=== PATIENT | male | born 1945 | race African-American/Black ===

== ENCOUNTER 2018-11-05 09:08 | Day surgery (SDC) | payer MEDICARE, BC, OTHER ==
[~2018-11-05 09:08] MED LIST: BUPIVACAINE HCL 0.75% INJ/PF (7.5 MG/1 ML) 10 ML SDV OS PRN; CHONDR SU A NA/HYALUR INTRAOC KIT (SURGICARE) ONE; DORZOLAMIDE HCL 2%/TIMOLOL MALEAT 0.5% OPH SOLN 10 ML OS PRN; EPINEPHRINE INJ/PF 1 MG/1 ML AMPULE ONE; KETOROLAC TROMETHAMINE 0.45% 4 DROP/0.4 ML DROPERETTE OS PRN; LIDOCAINE 1% INJ-PF (10 MG/ML) 30 ML SDV ONE; LIDOCAINE 4% INJ/PF (40 MG/ML) 5 ML AMPUL OS PRN; MIDAZOLAM 2 MG/2 ML INJ ONE
[2018-11-05] MEDS: CYCLOPENTOLATE 0.2%/PHENYLEPHRINE 1% OPH SOLN 2 ML OS PRN ×3 (10:16→10:37)
[2018-11-05] MEDS: TROPICAMIDE 1% OPH SOLN 3 ML OS PRN ×3 (10:16→10:37)
[2018-11-05] MEDS: BESIFLOXACIN HCL 0.6% OPH SUSP 5 ML BOTTLE OS PRN ×3 (10:17→11:58)
[2018-11-05] MEDS: TETRACAINE HCL 0.5% OPH SOLN 0.6 ML DROPERETTE OS PRN ×2 (10:18→10:38)
[2018-11-05] MEDS: LIDOCAINE 1%/PHENYLEPHRINE 1.5% 1 ML VIAL ONE ×2 (11:29→11:39)
--- NOTE | 2018-11-05 13:19 | [facility] OPERATIVE REPORT E ---
[facility] Operative Report NAME: KAYLIE MARRERO AGE: 73Y DATE OF SURGERY: 11/05/2018 ROOM: PREOPERATIVE DIAGNOSIS: 1. CATARACT, LEFT EYE. 2. ASTIGMATISM, LEFT EYE. 3. PRIMARY OPEN ANGLE GLAUCOMA, LEFT EYE. POSTOPERATIVE DIAGNOSIS: 1. CATARACT, LEFT EYE. 2. ASTIGMATISM, LEFT EYE. 3. PRIMARY OPEN ANGLE GLAUCOMA, LEFT EYE. PROCEDURE PERFORMED: Cataract extraction with TORIC intraocular lens implants with insertion of iStent inject. SURGEON: ERNIE WALLACE MD ANESTHESIA: TOPICAL WITH MAC. INDICATIONS FOR SURGERY: Difficulty driving and reading. Indications for eye stent: Patient is on 3 glaucoma medications and would like to decrease the medication use as well as improve control of his glaucoma. PROCEDURE: The patient was brought to the Operating Room and placed on the operative table. Following tetracaine drops, topical anesthesia was administered. Prior to the surgery the patient was placed in a seated position and the 0-270 and 180-degree axis of the eye was marked using a marking level. This consisted of instrument wipe pledgets soaked in a solution of 4% Xylocaine mixed with 0.75% Marcaine in a 1:2 ratio. A 2 x 1 cm pledget was placed in the superior fornix. A 1 x 1 cm pledget was placed in the inferior fornix. The eye was patched shut for 5 minutes. The patch was removed. The eye was sterilely prepped and draped in the usual manner. Lid speculum was placed in the eye. The pledgets were removed. 4-0 black silk sutures were placed around the superior and the inferior rectus muscles to be used as traction. A conjunctival peritomy was made at the 10 o'clock position. Hemostasis was obtained with bipolar cautery. A posterior limbal groove was created using a crescent knife and dissected anteriorly towards the cornea. A sharp point blade was used to create a paracentesis site at the 2 o'clock position. A 2.4 mm keratome was used to enter the anterior chamber through the groove. Viscoelastic was injected into the anterior chamber. An anterior capsulotomy was performed using Utrata forceps in a capsulorrhexis fashion. Hydrodissection and hydrodelineation were performed. Phacoemulsification was performed in hazgnc-ntz-rhksmyj technique. A total of 4.32 CDE phaco time was used. Prior to placing the lens implant the 177-degree axis of the eye was marked and the lens was centered at this axis. Following this, the I/A unit was used to remove residual cortex. Viscoelastic was injected into the capsular bag. Intraocular lens model SN6AT4, 22.0 diopters, serial number [id number] was placed in the capsular bag. The I/A unit was used to remove residual viscoelastic. The wound was seen to be watertight under high and low pressure, and no sutures were placed. The intraocular lens was well centered. The pressure was adjusted in the eye to normal pressure. The 4-0 black silk sutures and lid speculum were removed. Following the lens implantation, the anterior chamber was deepened with Provisc and the eye was rotated inferiorly. A gonial prism was placed on the eye *------*meshwork was visualized. The iStent inject was placed in the eye and the iStents were injected into trabecular meshwork two clock hours apart approximately the 4 and 6 o'clock positions. There was good reflux through the iStents. The remainder of the surgery proceeded uneventfully. The eye was shielded after Besivance drops were placed. The patient tolerated the procedure well and was sent to the Recovery Room in good condition. DICTATING PHYSICIAN: ERNIE WALLACE M.D. DICTATING PHYSICIAN: ERNIE WALLACE M.D. [id number] Y#: [id number] ID: [id number] JOB#: [id number] ACCT: [id number] cc:ERNIE WALLACE M.D. >
--- NOTE | 2018-11-05 13:24 | [facility] DISCHARGE SUMMARY E ---
[facility] Discharge Summary NAME: KAYLIE MARRERO AGE: 73Y ADMITTED: 11/05/2018 DISCHARGED: 11/05/2018 HOSPITAL COURSE: The patient is a 73-year-old gentleman who underwent cataract extraction with Toric intraocular lens implant, as well as insertion of iStent inject in the left eye on 11/05/18. He will be discharged to home. He is instructed to resume preoperative medications, take Tylenol as needed for discomfort, to keep his eye shielded, to use PROLENSA, Besivance, Durezol at 3 p.m. and 8 p.m., to use his Travatan and Combigan at 8 p.m. and to follow up in my office in 1 day. DICTATING PHYSICIAN: ERNIE WALLACE M.D. [id number] PHY#: [id number] ID: [id number] JOB#: [id number] ACCT: [id number] cc:ERNIE WALLACE M.D. >
== END 2018-11-05 12:46 | disposition home or self-care (01) ==
LOC: SC 09:08
PROVIDERS: ATTEND Ophthalmology
DX: H25.813 Combined forms of age-related cataract, bilateral (principal); H40.1121 Primary open-angle glaucoma, left eye, mild stage; H04.123 Dry eye syndrome of bilateral lacrimal glands; H52.4 Presbyopia; H57.03 Miosis; H52.202 Unspecified astigmatism, left eye; I10 Essential (primary) hypertension; E03.9 Hypothyroidism, unspecified; I49.9 Cardiac arrhythmia, unspecified; E78.00 Pure hypercholesterolemia, unspecified; R73.03 Prediabetes; E11.9 Type 2 diabetes mellitus without complications; E07.9 Disorder of thyroid, unspecified; N40.0 Benign prostatic hyperplasia without lower urinary tract symptoms; Z79.84 Long term (current) use of oral hypoglycemic drugs; Z79.899 Other long term (current) drug therapy; Z79.01 Long term (current) use of anticoagulants
CPT/HCPCS: 0191T; 66984; 142; 82962; C1783; J0171; J2250; J2370; J3490; V2787

== ENCOUNTER 2018-11-26 09:05 | Day surgery (SDC) | payer MEDICARE, BC, OTHER ==
[~2018-11-26 09:05] MED LIST changes: +BUPIVACAINE HCL 0.75% INJ/PF (7.5 MG/1 ML) 10 ML SDV OD PRN; -BUPIVACAINE HCL 0.75% INJ/PF (7.5 MG/1 ML) 10 ML SDV OS PRN; -DORZOLAMIDE HCL 2%/TIMOLOL MALEAT 0.5% OPH SOLN 10 ML OS PRN; +KETOROLAC TROMETHAMINE 0.45% 4 DROP/0.4 ML DROPERETTE OD PRN; -KETOROLAC TROMETHAMINE 0.45% 4 DROP/0.4 ML DROPERETTE OS PRN; +LIDOCAINE 4% INJ/PF (40 MG/ML) 5 ML AMPUL OD PRN; -LIDOCAINE 4% INJ/PF (40 MG/ML) 5 ML AMPUL OS PRN; -MIDAZOLAM 2 MG/2 ML INJ ONE
[2018-11-26] MEDS ORDERED: MIDAZOLAM 2 MG/2 ML INJ ONE (09:17)
[2018-11-26] MEDS: BESIFLOXACIN HCL 0.6% OPH SUSP 5 ML BOTTLE OD PRN ×5 (10:00→11:15)
[2018-11-26] MEDS: CYCLOPENTOLATE 0.2%/PHENYLEPHRINE 1% OPH SOLN 2 ML OD PRN ×3 (10:00→10:20)
[2018-11-26] MEDS: TETRACAINE HCL 0.5% OPH SOLN 0.6 ML DROPERETTE OD PRN ×3 (10:00→10:31)
[2018-11-26] MEDS: TROPICAMIDE 1% OPH SOLN 3 ML OD PRN ×3 (10:00→10:20)
[2018-11-26] MEDS ORDERED: LIDOCAINE 1%/PHENYLEPHRINE 1.5% 1 ML VIAL ONE (10:41)
[2018-11-26] MEDS ORDERED: HYALURONATE SODIUM SYRINGE 0.55 ML ONE (10:56)
[2018-11-26] MEDS: DORZOLAMIDE HCL 2%/TIMOLOL MALEAT 0.5% OPH SOLN 10 ML OD PRN ×3 (11:13→11:15)
--- NOTE | 2018-11-26 13:14 | [facility] DISCHARGE SUMMARY E ---
[facility] Discharge Summary NAME: KAYLIE MARRERO AGE: 73Y ADMITTED: 11/26/2018 DISCHARGED: 11/26/2018 HOSPITAL COURSE: The patient is a 73-year-old gentleman who underwent uneventful cataract extraction with Toric intraocular lens implant and insertion of iStent, right eye, on 11/26/2018. He will be discharged to home. He is instructed to resume preoperative medications, take Tylenol as needed for discomfort, keep his eye shielded, to use Durezol, Besivance, and Prolensa at 3 p.m. and 8 p.m., and to follow up in my office in 1 day. DICTATING PHYSICIAN: ERNIE WALLACE M.D. [id number] PHY#: [id number] ID: [id number] JOB#: [id number] ACCT: [id number] cc:ERNIE WALLACE M.D. >
--- NOTE | 2018-11-26 13:14 | [facility] OPERATIVE REPORT E ---
[facility] Operative Report NAME: KAYLIE MARRERO AGE: 73Y DATE OF SURGERY: 11/26/2018 ROOM: PREOPERATIVE DIAGNOSES: 1. Cataract, right eye. 2. Astigmatism, right eye. 3. Glaucoma, right eye. POSTOPERATIVE DIAGNOSES: 1. Cataract, right eye. 2. Astigmatism, right eye. 3. Glaucoma, right eye. PROCEDURES PERFORMED: Cataract extraction with Toric intraocular lens implant and insertion of iStent inject, right eye. Indication for cataract surgery, difficulty driving Indication for Istent: Primary open angle glaucoma on 3 medications and wanted to reduce medication dependence SURGEON: ERNIE WALLACE M.D. ANESTHESIA: Topical with MAC plus intraocular lidocaine. PROCEDURE: The patient was brought to the operating room and placed in a seated position. Following tetracaine drops, the eye was marked with a Toric marker at 0, 270, and 180-degree axis. The patient was placed in reclined position and instrument wipe pledgets were placed in the inferior and superior fornices. This consisted of 4% lidocaine mixed with 0.75% Marcaine. These pledgets were left in place for 5 minutes and then removed. The eye was sterilely prepped and draped in the usual manner. Lid speculum was placed in the eye. The 4-0 black silk sutures were placed around the superior and inferior rectus muscles to be used as traction. A conjunctival peritomy was made at the 135-degree axis. Hemostasis was obtained with bipolar cautery. A posterior limbal groove was created using a crescent knife and dissected anteriorly towards the cornea. A sharp point blade was used to create a paracentesis site at the 2 o'clock position. Total of 0.2 mL of 1% non-preserved lidocaine was injected into the anterior chamber. A 2.4 mm keratome was used to enter the anterior chamber through the groove. Viscoelastic was injected in the anterior chamber. An anterior capsulotomy was performed using Utrata forceps in a capsulorrhexis fashion. Hydrodissection and hydrodelineation were performed. Phacoemulsification was performed in a ukdpfm-afu-bncnqzx technique. A total of 5.62 CDE phaco time was used. Following this, the I/A unit was used to remove residual cortex. Viscoelastic was placed in the capsular bag. The eye was marked at the 24-degree axis for placement of the Toric lens using the previously marked site as preference. Intraocular lens model SN6AT4, 22.0 diopters, serial number [id number] was placed in the eye and centered at this axis. Additional Provisc was placed in the eye. The eye was rotated inferiorly and the gonioprism was placed on the eye visualizing the trabecular meshwork. The iStent was placed in the eye and the iStents were placed two clock hours apart in the trabecular meshwork. There was good heme through the iStents. The eye was recentered and the I/A unit was used to remove residual viscoelastic. The wound was seen watertight under high and low pressure, and no sutures were placed. The 4-0 black silk sutures and lid speculum were removed. The eye was shielded after Cosopt and Besivance drops were placed. The patient tolerated the procedure well and was sent to recovery room in good condition. DICTATING PHYSICIAN: ERNEI WALLACE M.D. [id number] PHY#: [id number] ID: [id number] JOB#: [id number] ACCT: [id number] cc:ERNIE WALLACE M.D. > MTDD
== END 2018-11-26 11:57 | disposition home or self-care (01) ==
LOC: SC 09:05
PROVIDERS: ATTEND Ophthalmology
DX: H25.811 Combined forms of age-related cataract, right eye (principal); H40.1112 Primary open-angle glaucoma, right eye, moderate stage; Z96.1 Presence of intraocular lens; H40.1121 Primary open-angle glaucoma, left eye, mild stage; E11.9 Type 2 diabetes mellitus without complications; E07.9 Disorder of thyroid, unspecified; I10 Essential (primary) hypertension; R01.1 Cardiac murmur, unspecified; Z79.899 Other long term (current) drug therapy
CPT/HCPCS: 0191T; 66984; 142; 82962; C1783; J0171; J2250; J2370; J3490; V2787